=== PATIENT | male | born 2005 | race Caucasian/White ===

== ENCOUNTER 2025-08-06 10:34 | Emergency (ER) | payer OTHER, SELFPAY ==
--- NOTE | ~2025-08-06 | XR_ITS ---
EXAMINATION: XR WRIST, LEFT XR HAND, LEFT CLINICAL INFORMATION: fall down stairs COMPARISON: None available. TECHNIQUE: PA, lateral, oblique, and scaphoid views of the left wrist. 3 views of the left hand. FINDINGS: There is no fracture, dislocation, or suspicious bone lesion. There is normal alignment. Joint spaces are normal. The carpal bones are intact and normally aligned. There is mild dorsal wrist soft tissue swelling. XR/XR hand LT min 3V IMPRESSION: 1. No acute bony abnormality of the left hand and wrist. 2. Mild dorsal wrist soft tissue swelling. Electronically signed by: Esequiel Olivares MD 08/06/2025 11:49 AM [facility]
--- NOTE | ~2025-08-06 | XR_ITS ---
EXAMINATION: XR WRIST, LEFT XR HAND, LEFT CLINICAL INFORMATION: fall down stairs COMPARISON: None available. TECHNIQUE: PA, lateral, oblique, and scaphoid views of the left wrist. 3 views of the left hand. FINDINGS: There is no fracture, dislocation, or suspicious bone lesion. There is normal alignment. Joint spaces are normal. The carpal bones are intact and normally aligned. There is mild dorsal wrist soft tissue swelling. XR/XR wrist LT min 3V IMPRESSION: 1. No acute bony abnormality of the left hand and wrist. 2. Mild dorsal wrist soft tissue swelling. Electronically signed by: Esequiel Olivares MD 08/06/2025 11:49 AM [facility]
[2025-08-06 11:18] VITALS: BP 145/81; PULSE 97; RESP 16; TEMP 36.6; O2SAT 97; BMI 27.8
--- NOTE | 2025-08-06 11:23 | ED.GENADULT ---
HPI - General Adult General Chief complaint: Fall Stated complaint: Injury Time Seen by Provider: 08/06/25 11:42 Source: patient and family Mode of arrival: ambulatory Limitations: no limitations History of Present Illness ED Provider: THOMAS MOLINA narrative: 20-year-old male with no significant past medical history, not on blood thinners, he is right-handed he comes into the emergency department today with complaint of left wrist pain. He states he tripped and fell down 10 steps his hand was in his pocket he felt a pop. He has never injured his left wrist before. He denies any head strike or loss of consciousness. He denies any other injuries. He is very tender and swollen over the dorsum of the left wrist particularly over the ulnar styloid. He has pain with any range of motion. He has good pulses, capillary refill, sensation intact. He has no elbow, clavicular or shoulder pain. MD complaint: Left wrist pain Onset (ago): minute(s) (Prior to arrival) Location: left Radiation: non-radiation Severity: moderate Quality: aching Pain Consistency: constant Relieving factors: immobilization Exacerbating factors: movement Associated symptoms: denies other symptoms Treatments prior to arrival: none Related Data Allergies Allergy/AdvReac Type Severity Reaction Status Date / Time No Known Allergies Allergy Verified 08/06/25 11:21 Review of Systems Review of Systems: Yes all other systems are reviewed and are negative [facility] Past Medical History Attestation statement: The following information was validated with the patient. Medical History No pertinent past medical history Social History Social History (Updated 08/06/25 @ 12:02 by Elvia Rushing DO) Patient Tobacco Use Status: Never used Tobacco Advance Directives: No Advance Directives Information Provided: Yes Physical Exam ED Vital Signs: Vital Signs - 24 hr 08/06/25 11:18 Temperature 97.9 F Pulse Rate 97 Respiratory Rate 16 Blood Pressure 145/81 H Pulse Oximetry 97 Oxygen Delivery Method Room Air BMI result Body Mass Index 27.8 Appearance: Alert. Oriented X3. No acute distress. Eyes: Pupils equal, round and reactive to light. ENT: Pharynx normal. Atraumatic Neck: Normal inspection. Neck supple. No midline tenderness to palpation CVS: Normal heart rate and rhythm. Pulses normal. Respiratory: No respiratory distress. Breath sounds normal. Abdomen: Atraumatic Skin: Skin warm and dry. Normal skin color. Extremities: Left upper extremity he has swelling and tenderness to palpation over the ulnar styloid, he has contusion noted, he is neurovascularly intact distally, he has no elbow, clavicular, shoulder pain Neuro: Oriented X 3. No motor deficit. No sensory deficit. CN2-12 intact Course Course Course Narrative: RME: 20 yold male presents to the ED for left wrist pain after falling down stairs. Jessamine a pop in left wrist. patietn states no other complaints. xray ordered. Procedures Orthopedic Splinting/Casting Injury #1: Side: left Upper Extremity Immobilizer: wrist splint Additional Comments: Neurovascularly intact Discharge Plan Discharge Clinical Impression: Left wrist sprain Patient Disposition: Home, Self-Care Instructions: Wrist Injury (ED), Wrist Sprain (ED) Additional Instructions: Wear the splint at all times unless you are showering, it is Velcro self becomes too tight you can loosen it, you should take it off and ice it for 15 minutes every other hour for the next 48 hours. You can not ice while sleeping. Please place a towel in between your skin and the ice It is okay to take the splint off for showering Return for any worsening symptoms, numbness, weakness, new injury or concern for pain Take Tylenol and Motrin as needed for pain Orthopedics will follow up with you next week the provider's name is Gavin CORNEJO if you do not hear from the office by Saturday afternoon would call to schedule an appointment Referrals: [facility] [Provider Group] Stand Alone Forms: Work/School Release Interventions: ED Discharge Assessment Last Done: 08/06/25 12:19 Discharge Date/Time: 08/06/25 12:19 Print Language: Kyrgyz
[2025-08-06 12:19] VITALS: BP 145/81; PULSE 97; RESP 16; TEMP 36.6; O2SAT 97
--- OUTSIDE RECORDS SUMMARY | 2025-08-06 12:41 | XMS_ITS | Patient Health Record ---
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
== END 2025-08-06 12:19 | disposition home or self-care (01) ==
PROVIDERS: Emergency Provider Emergency Medicine; PCP Physician Assistant Surgical
DX: S63.502A Unspecified sprain of left wrist, initial encounter (principal); W10.9XXA Fall (on) (from) unspecified stairs and steps, initial encounter; Y93.9 Activity, unspecified; Y92.9 Unspecified place or not applicable; Y99.8 Other external cause status
CPT/HCPCS: 29125; 73110; 73130; 99283; 99284

== ENCOUNTER → 2025-08-06 11:22 | Outpatient (BNV) | payer OTHER, SELFPAY | PROVIDERS: Emergency Provider Emergency Medicine; PCP Physician Assistant Surgical; Visit Provider Radiology Diagnostic Radiology | DX: M79.89 Other specified soft tissue disorders (principal); Z04.3 Encounter for examination and observation following other accident | CPT/HCPCS: 73110; 73130 ==